=== PATIENT | female | born 1945 | race Hispanic/Latino ===

== ENCOUNTER 2017-08-13 11:57 | Outpatient (CLI) | payer OTHER ==
[2017-08-13 13:12] LABS: Blood Urea Nitrogen 11 mg/dL (7-17)
--- NOTE | 2017-08-13 14:50 | Cat Scan Report ---
CT scan of abdomen and pelvis without and with IV contrast: History: Hematuria. Findings: Normal liver gallbladder and pancreas. Enlarged gallbladder. Dilated common bile duct measuring 1.3 cm isabella hepatis and 1 cm in the head of the pancreas. No intrahepatic duct dilatation No distinct mass is seen in the region of the pancreas. No calculi in the gallbladder. Normal adrenals. 7 mm cyst right kidney. 8 mm cyst left kidney. 5 mm cyst left kidney. No evidence of hydronephrosis. Thick wall urinary bladder. No definite intrinsic mass. No free intraperitoneal fluid or air. No evidence of adenopathy. Normal aorta. Gaseous colon with moderate volume stool in colon. Diverticulosis sigmoid colon. No evidence of appendicitis or diverticulitis. Impression: Enlarged gallbladder with dilated common bile duct. Cysts right and left kidney. Uniformly thickwalled contracted urinary bladder may be related to cystitis. No definite hydronephrosis. Diverticulosis sigmoid colon.
== END 2017-08-13 11:58 | disposition home or self-care (01) ==
LOC: CT 11:57
PROVIDERS: ATTEND Urology
DX: N28.1 Cyst of kidney, acquired (principal); K57.30 Diverticulosis of large intestine without perforation or abscess without bleeding; K82.8 Other specified diseases of gallbladder
CPT/HCPCS: 36415; 74178; 82565; 84520; Q9967